=== PATIENT | male | born 2005 | race Caucasian/White ===

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

== ENCOUNTER 2023-08-23 22:19 | Emergency (ER) | payer OTHER ==
[~2023-08-23] VITALS: Ht 180.3 cm; Wt 55.3 kg
[~2023-08-23 22:19] MED LIST changes: +Tamiflu75 MG PO
[2023-08-23 22:31] VITALS: BP 140/89
== END 2023-08-24 00:58 | disposition home or self-care (01) ==
LOC: ER 22:19
DX: S63.502A Unspecified sprain of left wrist, initial encounter (principal); W18.30XA Fall on same level, unspecified, initial encounter; Z88.0 Allergy status to penicillin
CPT/HCPCS: 73110; 99283-25